=== PATIENT | female | born 1990 | race Caucasian/White ===

== ENCOUNTER 2018-08-11 12:58 | Emergency (ER) | payer SELFPAY ==
[~2018-08-11] VITALS: Ht 167.6 cm; Wt 59.1 kg
[2018-08-11 13:07] VITALS: TEMP 98.1
[2018-08-11] MEDS ORDERED: LAMICTAL XR200 MG PO ×2 (13:15→14:33)
[2018-08-11] MEDS ORDERED: ADDERALL30 MG PO (13:16)
[2018-08-11] MEDS ORDERED: GENERESS FE 0.01 CTB PO ×2 (13:17→16:00)
[2018-08-11 13:42] LABS: BASO # 0.1 (0.0-0.2); BASO % 0.5 % (0.0-2.0); EOS # 0.1 (0.0-0.7); EOS % 0.5 % (0-4.0); GRAN # 7.4 (1.4-6.5); GRAN % 80.5 % (42.2-75.2); HEMATOCRIT 41.3 % (37.0-47.0); HEMOGLOBIN 13.9 g/dl (12.5-16.0); LYMPH # 1.3 (1.2-3.4); LYMPH % 13.9 % (20.0-51.0); MEAN CELL VOLUME 87 fl (80.0-100.0); MEAN CORPUSCULAR HEMOGLOBIN 29 pg (27.0-31.0); MEAN CORPUSCULAR HGB CONC 34 g/dl (33.0-37.0); MEAN PLATELET VOLUME 9.6 fl (7.4-10.4); MONO # 0.4 (0.1-0.6); MONO % 4.1 % (1.7-9.3); PLATELET COUNT 267 K/mm3 (130-400); RED BLOOD COUNT 4.75 M/mm3 (4.10-5.30); REDCELL DISTRIBUTION WIDTH-CV 12.3 % (11.5-14.5)
[2018-08-11 13:52] LABS: ALANINE AMINOTRANSFERASE 21 U/L (9-52); ALBUMIN 4.2 gm/dL (3.5-5.0); ALKALINE PHOSPHATASE 60 U/L (50-136); ANION GAP 7 mmol/L (7-16); AST,SGOT 24 U/L (15-37); BILIRUBIN,TOTAL 0.2 mg/dL (0.0-1.0); BLOOD UREA NITROGEN 13 mg/dL (7-17); CALCIUM 9.1 mg/dL (8.4-10.2); CARBON DIOXIDE 26 mmol/L (22-30); CHLORIDE 107 mmol/L (98-107); CREATININE, serum 0.77 mg/dL (0.52-1.25); GLUCOSE 104 mg/dL (74-106); POTASSIUM 4.1 mmol/L (3.4-5.0); SODIUM 140 mmol/L (137-145); TOTAL PROTEIN 7.2 gm/dL (6.4-8.2)
[2018-08-11 13:54] LABS: ALCOHOL(ethanol),MEDICAL < 10 mg/dL
[2018-08-11 14:09] LABS: PROLACTIN 42.3 ng/mL (3.0-18.6)
[2018-08-11] MEDS ORDERED: NORCO 325 MG-51 TAB PO (14:33)
[2018-08-11] MEDS ORDERED: ADDERALL20 MG PO (16:00)
[2018-08-11 16:56] VITALS: BP 117/76; PULSE 105
== END 2018-08-11 17:05 | disposition home or self-care (01) ==
LOC: COL.ER 12:58
PROVIDERS: Emergency Medicine
DX: S42.012A Anterior displaced fracture of sternal end of left clavicle, initial encounter for closed fracture (principal); R56.9 Unspecified convulsions; F98.8 Other specified behavioral and emotional disorders with onset usually occurring in childhood and adolescence; V49.9XXA Car occupant (driver) (passenger) injured in unspecified traffic accident, initial encounter; Y92.410 Unspecified street and highway as the place of occurrence of the external cause
CPT/HCPCS: J1885; J2060; J2405; J3010; J7030